=== PATIENT | female | born 1965 | race Caucasian/White ===

== ENCOUNTER → 2016-08-28 | Outpatient (CLI) | payer OTHER ==
[~2016-08-28] MED LIST: GADAVIST IV PRN
--- NOTE | 2016-08-28 09:21 | DIAGNOSTIC IMAGING REPORT ---
MRI OF THE BRAIN COMBO INTERNAL AUDITORY CANAL PROTOCOL CLINICAL HISTORY: Neurofibromatosis. Vestibular schwannoma follow-up. COMPARISON STUDY: MRI of the brain dated 08/30/2015. TECHNIQUE: MRI of the brain was performed utilizing various T1 and T2-weighted sequences in the axial, sagittal, and coronal planes. Contrast-enhanced sequences were acquired following the administration of 14 cc of Gadavist. Additional high-resolution imaging was performed through the skull base both pre and post contrast to further assess the internal auditory canals. The examination is significantly degraded by open MRI technique. FINDINGS: Brain parenchyma: There are age-related involutional changes noting mild patchy subcortical and periventricular microangiopathic disease. There is no hemorrhage or mass effect. There is no restricted diffusion to suggest acute ischemia. No enhancing parenchymal mass lesion is identified on the postcontrast images. See below. Clark-white matter differentiation is preserved. No extra-axial fluid collection is seen. The cerebellar tonsils are normal in configuration. Internal auditory canals: Again seen is a 5 mm enhancing nodule along the left internal canal. This is best seen on high-resolution postcontrast image #9. This remains typical appearance for a vestibular schwannoma. A right cerebellopontine angle mass is unchanged to minimally increased in size from 08/30/2015. This measures 1.6 x 0.8 cm (producing measured 1.5 x 0.6 cm). The appearance favors meningioma. No new enhancing mass lesion is seen. Ventricles, sulci, and cisterns: Prominent second or to involutional change. Pituitary and sella: Unremarkable. Intracranial vasculature: Normal flow voids are maintained at the skull base. Orbits: The bony orbits are grossly intact. Orbital contents are normal in appearance. Sinuses and mastoids: Trace mucosal thickening seen within the maxillary antra. The remaining paranasal sinuses are clear. Postoperative changes noted involving the right mastoids and there is a right mastoid effusion. 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 No destructive calvarial lesion is seen. Cervical cord: Partially visualized cervical spinal cord is normal in morphology and signal intensity. IMPRESSION: 1. No acute intracranial abnormality. 2. A right cerebellopontine angle mass lesion is unchanged to minimally increased in size from 08/30/2015. The location and appearance favor a meningioma. 3. A 5 mm enhancing nodule within the left internal auditory canal is unchanged from 08/30/2015 and is typical appearance for a small vestibular schwannoma. 4. No new enhancing lesion is identified. Electronically signed by: Rigo Zamudio M.D. 08/28/2016 9:19 AM Dictated Date/Time: 08/28/2016 9:09 AM
== END | disposition home or self-care (01) ==
LOC: C.OPENMRI 07:29
DX: D33.3 Benign neoplasm of cranial nerves (principal)